=== PATIENT | male | born 1970 | race Caucasian/White ===

== ENCOUNTER 2019-03-05 21:05 | Inpatient (IN) | payer SELFPAY ==
[~2019-03-05] VITALS: Ht 180.3 cm; Wt 104.3 kg
--- NOTE | ~2019-03-05 | CN ---
PATIENT NAME:ELVIRA GARVIN MEDICAL RECORD: [id number] : 74 LOCATION:[facility] D.2127 ADMIT DATE: 03/05/19 ACCOUNT: [id number] CONSULTING PHYSICIAN: ELIZABETH BOROKE MD REFERRING PHYSICIAN: JAJA AVILA MD DATE OF CONSULTATION: 03/06/2019 CARDIOLOGY CONSULTATION DIAGNOSES: 1. Elevated troponin. 2. Cellulitis. HISTORY OF PRESENT ILLNESS: Mr. Garvin presents with left lower extremity cellulitis. He is being treated with IV antibiotics for this. He was noted have an elevated troponin. He has had no chest pain, no chest discomfort, no cardiac symptoms. His EKG shows sinus tachycardia, but no ST-T abnormalities. He is quite tachycardic over 100. His systolic blood pressure was in the 160-180 range. He has no cardiac history. PHYSICAL EXAMINATION: GENERAL APPEARANCE: Well-nourished, well-developed, appears stated age. Level of distress, comfortable. PSYCHIATRIC: Mental status, alert, normal affect. Orientation, oriented to time, place and person. EYES: Lids and conjunctiva, noninjected. No discharge, no pallor. ENT: Lips, teeth, gums, normal dentition. Oropharynx, no cyanosis, no pallor. NECK: Carotid arteries, bilateral normal upstroke, no bruits, no thrills. JUGULAR VEINS: No jugular venous pressure or distention. CERVICAL LYMPH NODES: Nontender, nonenlarged. THYROID: Not enlarged. Nontender. No nodules. LUNGS: Respiratory effort, unlabored. CHEST: Normal curvature. No thoracic deformity. No chest wall tenderness. Percussion, resonant. Auscultation, clear. No wheezes, no rales, no rhonchi. CARDIOVASCULAR: Precordial exam, nondisplaced. No heaves or pericardial thrills. Rate and rhythm, regular. Heart sounds, normal S1, normal S2. No S3, no gallop, no rub. Systolic murmur, not heard. Diastolic murmur, not heard. EXTREMITIES: No cyanosis, no edema. Peripheral pulses, full and equal in all extremities, except as noted. No bruits appreciated. ABDOMEN: Soft, nondistended. Normal aorta. No bruit. Nontender. No masses. Liver, nontender, no hepatomegaly. Spleen, nontender, no splenomegaly. MUSCULOSKELETAL: No joint tenderness. No joint swelling. No erythema. NEUROLOGICAL: Normal gait, normal strength, normal tone. SKIN: Warm and dry. OVERALL IMPRESSION: Increased troponin, most likely demand ischemia from the tachycardia from the cellulitis. We will get an echocardiogram, start him on Lopressor 50 mg b.i.d. TRANSINT:[id number] Voice Confirmation ID: [id number] DOCUMENT ID: [id number] CONSULT REPORT [id number] ELVIRA GARVIN JEFFREY MD CC: [id number] DICTATION DATE: 03/06/19 1152 ELECTRONICS RESEARCH ENGINEER: 03/06/19 1512 ADM IN [facility] [address] [id number]
--- NOTE | ~2019-03-05 | EC ---
PATIENT:ELVIRA STAPLETON DATE OF SERVICE: 03/05/19 SEX: M MEDICAL RECORD: [id number] DATE OF : 74 LOCATION:D.M2 D.212 AGE OF PATIENT: 48 ADMISSION DATE: 03/05/19 REFERRING PHYSICIAN: INTERPRETING PHYSICIAN: ELIZABETH DELGADO MD ECHOCARDIOGRAM REPORT ECHO CHARGES 4 ECHO COMPLETE Date: 03/06/19 CLINICAL DIAGNOSIS: ELEVATED TROPONIN ECHOCARDIOGRAPHIC MEASUREMENTS (adult normal given) AC root (d.<3.7cm) 3.3 cm LV Septum d (<1.2 cm> 1.4 cm Valve Excursion 2.2 cm LV Septum (systole) 1.7 cm Left Atria (s.<4.0cm> 4.0 cm LVPW d(<1.2cm) 1.4 cm RV (d.<2.3cm) 2.7 cm LVPW (sytole) 1.9 cm LV diastole(<5.6CM) 4.3 cm MV E-F(>70mm/sec) cm LV systole 2.6 cm LVOT Diameter 2.3 cm MV exc.(>10mm) cm Est.ejection fraction (50-75%) % DOPPLER: LVIT cm/sec A 58.0 cm/sec E 60.0 cm/sec LA cm/sec RVSP mmHg LVOT 90.0 cm/sec AOP1/2T m/s Asc. Ao 137 cm/sec RVOT 59.0 cm/sec RA cm/sec PA 97.0 cm/sec AV Gradient Peak 7.5 mmHg AV Mean 3.9 mmHg AV Area 2.3 cm MV Gradient Peak 2.9 mmHg MV Mean 1.3 mmHg MV Area cm COMMENTS: Car Construction Superintendent: Johnny FRENCHOE Primer Assembler: 1 Dr. Delgado TAPE# PACS Pericardial Effusion N DATE OF SERVICE: 03/06/2019 FINDINGS: 1. Left ventricular chamber size is within normal limits. Left ventricular systolic function is normal. Overall ejection fraction estimated at 55%. 2. Left atrium, right atrium, and right ventricular chamber sizes are within normal limit. 3. Valvular structures have normal structure and motion. 4. Doppler interrogation reveals no significant valvular insufficiency or stenosis. ECHOCARDIOGRAM REPORT [id number] ELVIRA STAPLETON 5. No evidence of pericardial effusion or left ventricular thrombus. TRANSINT:[id number] Voice Confirmation ID: [id number] DOCUMENT ID: [id number] ELIZABETH DELGADO MD CC: [id number] DICTATION DATE: 03/06/191729 SHAKE SAWYER: 03/06/192225 ADM IN [place] [id number] [place] [id number]
[2019-03-05 22:43] LABS: BASOPHILS 0.2 % (0-2); EOSINOPHILS 0.1 % (0-7); HEMATOCRIT 51.8 % (42.0-54.0); HEMOGLOBIN 18.4 g/dL (13.5-17.5); IMMATURE GRANULOCYTES 0.5 % (0-5); LYMPHOCYTES 13.9 % (15-50); MCH 32.1 pg (26.0-34.0); MCHC 35.5 g/dL (31.0-37.0); MCV 90.2 fL (80.0-100.0); MEAN PLATELET VOLUME 10.8 fL (7.4-10.4); MONOCYTES 7.5 % (2-11); NEUTROPHILS 77.8 % (40-80); PLATELET COUNT 221 10x3/uL (130-400); RBC 5.74 10x6/uL (4.20-6.10); RDW 12.8 % (11.5-14.5); WBC 17.8 10x3/uL (4.8-10.8)
[2019-03-05 22:52] LABS: APPEARANCE CLEAR (CLEAR); BILIRUBIN NEGATIVE (NEGATIVE); COLOR YELLOW (YELLOW); GLUCOSE NEGATIVE (NEGATIVE); KETONE NEGATIVE (NEGATIVE); NITRITE NEGATIVE (NEGATIVE); PROTEIN NEGATIVE (NEGATIVE); UROBILINOGEN NORMAL (NORMAL)
[2019-03-05 22:54] LABS: ALBUMIN 3.6 g/dL (3.4-5.0); ALKALINE PHOSPHATASE 105 U/L (46-116); ALT (SGPT) 74 U/L (10-68); AMYLASE - SERUM 62 U/L (25-115); BILIRUBIN - TOTAL 0.93 mg/dL (0.2-1.3); CALC OSMOLALITY 271 mosm/kg (275-300); CALCIUM 9.1 mg/dL (8.5-10.1); CARBON DIOXIDE 30.1 mmol/L (21.0-32.0); CHLORIDE - SERUM 95 mmol/L (98-107); CKMB 1.1 U/L (0.0-3.6); CREATINE KINASE 92 UL (21-232); CREATININE - SERUM 1.3 mg/dL (0.6-1.3); GLUCOSE 136 mg/dL (74-106); LIPASE 257 U/L (73-393); POTASSIUM - SERUM 3.9 mmol/L (3.5-5.1); PROTEIN - SERUM 8.6 g/dL (6.4-8.2); SODIUM 135 mmol/L (136-145); UREA NITROGEN 12 mg/dL (7-18); eGFR NON AFRICAN AMERICAN 63 mL/min (90-120)
[2019-03-05 22:59] LABS: TROPONIN-I 0.141 ng/mL (0.000-0.060)
[2019-03-05 23:06] LABS: INR 1.39 (0.85-1.17); PROTIME 16.5 SECONDS (11.6-15.0)
[2019-03-05 23:07] LABS: APTT 50.7 SECONDS (22.8-39.4)
[2019-03-06 00:11] VITALS: BP 125/83; BMI 32.1
[2019-03-06 04:30] VITALS: BP 186/84
[2019-03-06 04:57] LABS: BASOPHILS 0.2 % (0-2); EOSINOPHILS 0.1 % (0-7); HEMATOCRIT 47.4 % (42.0-54.0); HEMOGLOBIN 16.3 g/dL (13.5-17.5); IMMATURE GRANULOCYTES 0.3 % (0-5); MCH 31.2 pg (26.0-34.0); MCHC 34.4 g/dL (31.0-37.0); MCV 90.8 fL (80.0-100.0); MEAN PLATELET VOLUME 10.6 fL (7.4-10.4); MONOCYTES 11.3 % (2-11); NEUTROPHILS 67.1 % (40-80); PLATELET COUNT 189 10x3/uL (130-400); RBC 5.22 10x6/uL (4.20-6.10); RDW 12.7 % (11.5-14.5); WBC 18.7 10x3/uL (4.8-10.8)
[2019-03-06 05:26] LABS: ALKALINE PHOSPHATASE 91 U/L (46-116); ALT (SGPT) 70 U/L (10-68); BILIRUBIN - TOTAL 0.83 mg/dL (0.2-1.3); CALC OSMOLALITY 281 mosm/kg (275-300); CALCIUM 8.7 mg/dL (8.5-10.1); CARBON DIOXIDE 32.5 mmol/L (21.0-32.0); CHLORIDE - SERUM 103 mmol/L (98-107); CKMB 1.4 U/L (0.0-3.6); CREATINE KINASE 81 UL (21-232); CREATININE - SERUM 1.3 mg/dL (0.6-1.3); GLUCOSE 110 mg/dL (74-106); POTASSIUM - SERUM 4.1 mmol/L (3.5-5.1); PROTEIN - SERUM 7.2 g/dL (6.4-8.2); SODIUM 141 mmol/L (136-145); UREA NITROGEN 13 mg/dL (7-18); eGFR NON AFRICAN AMERICAN 63 mL/min (90-120)
[2019-03-06 05:27] LABS: TROPONIN-I 0.153 ng/mL (0.000-0.060)
--- NOTE | 2019-03-06 07:34 | NUR ---
REPORT RECEIVED. WILL CONTINUE WITH POC. PT CURRENTLY LYING SUPINE. CALL LIGHT W/I REACH. PT IS RESTING AT THE MOMENT. RR EVEN AND UNLABORED RA. LR INFUSING @125ML/HR VIA R.AC. NO S/S OF DISTRESS NOTED. PT IS NPO AT THE MOMENT. PT DENIES ANY NEEDS AT THIS TIME. WILL CTM.
[2019-03-06 08:40] VITALS: BP 181/97
[2019-03-06 10:20] LABS: CKMB 1.3 U/L (0.0-3.6); CREATINE KINASE 86 UL (21-232)
[2019-03-06 10:21] LABS: TROPONIN-I 0.156 ng/mL (0.000-0.060)
--- NOTE | 2019-03-06 10:26 | NUR ---
ABX CURRENTLY INFUSING. PT CURRENTLY SLEEPING. WILL CTM.
--- NOTE | 2019-03-06 11:53 | NUR ---
PT IS NO LONGER NPO. PT IS NOT GOING TO GUN STRIPER. WILL CTM. PT CURRENTLY EATING LUNCH.
[2019-03-06 12:30] VITALS: BP 155/60
--- NOTE | 2019-03-06 13:25 | MORECARE ---
CASE MANAGEMENT DISCHARGE SUMMARY PATIENT: ELVIRA STAPLETON UNIT: [id number] ADM DATE: 03/05/19 AGE: 48 : 74 SEX: M ROOM/BED: D.2127 AUTHOR: TAHIR ACOSTA PHYSICIAN: REFERRING PHYSICIAN: JAJA AVILA MD DATE OF SERVICE: 03/06/19 Discharge Plan Patient Name: ELVIRA STAPLETON [facility] [facility] 1970 Planned Disposition: Home Anticipated Discharge Date: Discharge Date: Expected LOS: Initial Reviewer: [email or web address] Initial Review Date: 03/06/2019 Generated: 03/06/19 2:25 pm Patient Name: ELVIRA STAPLETON Page [id number] at 1325 All edits/amendments must be made on the electronic document DICTATION DATE: 03/06/19 1325 RETICLE PRINTER: RADHA 03/06/19 1325 RPT#: [id number] DC DATE: STATUS: ADM IN [facility] [address] [place] [address] END OF REPORT
--- NOTE | 2019-03-06 13:33 | MORECARE ---
CASE MANAGEMENT DISCHARGE SUMMARY PATIENT: ELVIRA STAPLETON UNIT: [id number] ADM DATE: 03/05/19 AGE: 48 : 74 SEX: M ROOM/BED: D.0984 AUTHOR: DAVE,DOC PHYSICIAN: REFERRING PHYSICIAN: JAJA AVILA MD DATE OF SERVICE: 03/06/19 Discharge Plan Patient Name: ELVIRA STAPLETON Facility: [facility]:[place] : 1970 Planned Disposition: Home Anticipated Discharge Date: Discharge Date: Expected LOS: Initial Reviewer: [email or web address] Initial Review Date: 03/06/2019 Generated: 03/06/19 2:33 pm Comments DCP- Discharge Planning Updated by [email or web address]: Driss Finnegan on 03/06/19 12:[address] Patient Name: ELVIRA STAPLETON Admission Status: ER Accout number: [id number] Admission Date: 03-05-2019 : 1970 Admission Diagnosis: Attending: JAJA AVILA Current LOS: 1 Anticipated DC Date: Planned Disposition: Home Primary Insurance: UNINSURED DISCOUNT PLAN Discharge Planning Comments: CM MET WITH PT IN ROOM TO DISCUSS DISCHARGE PLANNING AND NEEDS. PT REPORTS LIVING AT HOME INDEPENDENTLY WITH HIS GIRLFRIEND. PT HAS NO MEDICAL EQUIPMENT AND NO OUTSIDE SERVICES ASSISTING IN THE HOME. CM DISCUSSED AVAILABILITY OF HOME HEALTH, REHAB SERVICES AND MEDICAL EQUIPMENT. PT DENIES DISCHARGE NEEDS, REPORTS HIS GIRLFRIEND WILL PICK HIM UP FOR DISCHARGE HOME. PT PLANS TO DISCHARGE HOME WITH GIRLFRIEND, NO ANTICIPATED DISCHARGE NEEDS AT THIS TIME. GIRLFRIEND TO TRANSPORT HOME AT DISCHARGE. CM TO FOLLOW AND ASSIST IF NEEDED. Manager Database: Driss Finnegan DCPIA - Discharge Planning Initial Assessment Updated by [email or web address]: Driss Finnegan on 03/06/19 1:28 pm * Is the patient Alert and Oriented? Yes * How many steps to enter\exit or inside your home? * PCP DR. LUCAS * Pharmacy [facility] [address] * Preadmission Environment Home with Family * ADLs Independent * Equipment None * Other Equipment NO MEDICAL EQUIPMENT PROVIDER PREFERENCE * List name and contact numbers for known caregivers / representatives who currently or will assist patient after discharge: RADHA STAPLETON, MOTHER, * Verbal permission to speak to the caregivers and representatives has been obtained from the patient. N/A * Community resources currently utilized None * Please name any agencies selected above. NONE * Additional services required to return to the preadmission environment? No * Can the patient safely return to the preadmission environment? Yes * Has this patient been hospitalized within the prior 30 days at any hospital? No Last DP export: 03/06/19 12:25 pm Patient Name: ELVIRA STAPLTEON Page [phone] at 1333 All edits/amendments must be made on the electronic document DICTATION DATE: 03/06/19 1333 SOFTWARE CONFIGURATION ANALYST: RADHA 03/06/19 1333 RPT#: [id number] DC DATE: STATUS: ADM IN [facility] [address] [place] [address] END OF REPORT
[2019-03-06 14:15] VITALS: Ht 180.3 cm; Wt 104.3 kg
[2019-03-06 16:36] VITALS: BP 163/97
[2019-03-06 16:37] LABS: CKMB 1.3 U/L (0.0-3.6); CREATINE KINASE 76 UL (21-232)
[2019-03-06 16:38] LABS: TROPONIN-I 0.153 ng/mL (0.000-0.060)
[2019-03-06 17:25] LABS: UDS - AMPHET NEGATIVE QUAL (NEGATIVE); UDS - BARB NEGATIVE QUAL (NEGATIVE); UDS - BENZO NEGATIVE QUAL (NEGATIVE); UDS - COCAINE NEGATIVE QUAL (NEGATIVE); UDS - OPIATE NEGATIVE QUAL (NEGATIVE); UDS - PCP NEGATIVE QUAL (NEGATIVE); UDS - THC NEGATIVE QUAL (NEGATIVE)
--- NOTE | 2019-03-06 19:20 | NUR ---
PT ASLEEP. RESP EVEN AND UNLABORED. PT AROUSES TO VERBAL STIMULI. PT WILL CALL FOR ASSIST. NAME AND DATE PLACED ON BOARD. WILL CPOC
[2019-03-06 20:00] VITALS: BP 137/82
--- NOTE | 2019-03-06 21:36 | NUR ---
NIGHT MEDICATIONS GIVEN. RIGTH AC 20G PATENT HAS LR INFUSING ORDERED. PT FALLING ASLEEP WHILE NURSE IN ROOM. SNORING WITH EVEN AND UNLABORED BREATHS. PT HAS CALL LIGHT IN REACH. WILL CPOC
[2019-03-07 00:30] VITALS: BP 139/87
[2019-03-07 04:20] VITALS: BP 137/80
--- NOTE | 2019-03-07 04:56 | NUR ---
MORNING MEDICATION GIVEN. PT DENIES ANY NEEDS. PT HAS NO S/S OF DISTRESS. BEDLOW AND CALL LIGHT IN REACH. PT WILL CALL FOR ASSIST WHEN NEEDED. WILL CPOC
[2019-03-07 05:48] LABS: BASOPHILS 0.2 % (0-2); EOSINOPHILS 3.7 % (0-7); HEMATOCRIT 46.3 % (42.0-54.0); HEMOGLOBIN 15.9 g/dL (13.5-17.5); IMMATURE GRANULOCYTES 0.2 % (0-5); LYMPHOCYTES 25.8 % (15-50); MCH 31.5 pg (26.0-34.0); MCHC 34.3 g/dL (31.0-37.0); MCV 91.7 fL (80.0-100.0); MEAN PLATELET VOLUME 10.9 fL (7.4-10.4); MONOCYTES 10.8 % (2-11); NEUTROPHILS 59.3 % (40-80); PLATELET COUNT 185 10x3/uL (130-400); RBC 5.05 10x6/uL (4.20-6.10); RDW 13.1 % (11.5-14.5)
[2019-03-07 05:56] LABS: WBC 12.3 10x3/uL (4.8-10.8)
[2019-03-07 05:58] LABS: ANION GAP 10.2 mmol/L (8-16); CALCIUM 8.5 mg/dL (8.5-10.1); CARBON DIOXIDE 30.9 mmol/L (21.0-32.0); CREATININE - SERUM 1.3 mg/dL (0.6-1.3); POTASSIUM - SERUM 4.1 mmol/L (3.5-5.1)
--- NOTE | 2019-03-07 07:45 | NUR ---
ASSESSMENT DONE. NO DISTRESS NOTED. DENIES NEEDS AT THIS TIME. CALL LIGHT WITHIN REACH. BED AT LOWEST POSITION. WILL CONTINUE TO MONITOR.
[2019-03-07 08:23] VITALS: BP 163/89
[2019-03-07 11:29] VITALS: BP 131/85
[2019-03-07 15:58] VITALS: BP 125/76
--- NOTE | 2019-03-07 19:10 | NUR ---
RESTING WITH EYES CLOSED BED IS LOW AND LOCKED
[2019-03-07 20:00] VITALS: BP 129/69
[2019-03-08] VITALS (7 sets, daily range): BP systolic 120–146; BP diastolic 72–97
--- NOTE | 2019-03-08 04:11 | NUR ---
I have reviewed this patient and I concur with the Shift Assessment completed by the Licensed Practical Nurse today this shift.
[2019-03-08 06:46] LABS: ANION GAP 11.6 mmol/L (8-16); CALCIUM 8.8 mg/dL (8.5-10.1); CARBON DIOXIDE 29.4 mmol/L (21.0-32.0); CREATININE - SERUM 1.2 mg/dL (0.6-1.3)
--- NOTE | 2019-03-08 07:47 | NUR ---
ASSESSMENT COMPLETED. ALERT AND ORIENTED. UP AB ESAU. RIGHT AC ANAIS TRAN AT KVO. DENIES ANY NEEDS. WILL MONITOR
[2019-03-08 07:54] LABS: BASOPHILS 0.5 % (0-2); EOSINOPHILS 3.5 % (0-7); HEMATOCRIT 46.6 % (42.0-54.0); IMMATURE GRANULOCYTES 0.5 % (0-5); LYMPHOCYTES 29.2 % (15-50); MCH 31.3 pg (26.0-34.0); MCHC 34.3 g/dL (31.0-37.0); MCV 91.2 fL (80.0-100.0); MEAN PLATELET VOLUME 11.2 fL (7.4-10.4); MONOCYTES 11.6 % (2-11); NEUTROPHILS 54.7 % (40-80); PLATELET COUNT 208 10x3/uL (130-400); RBC 5.11 10x6/uL (4.20-6.10); RDW 12.9 % (11.5-14.5); WBC 10.8 10x3/uL (4.8-10.8)
--- NOTE | 2019-03-08 12:11 | NUR ---
Nutrition follow-up: Diet: Low sodium PO intake 75-100% of most meals labs reviewed Wt: 230# No BM charted since admit RDN following.
--- NOTE | 2019-03-08 18:07 | NUR ---
LYING QUIETLY WITH EYES CLOSED. TELEMERTY SHOWS SR. NO DISTRESS NOTED
--- NOTE | 2019-03-08 19:10 | NUR ---
RESTING WITH EYES CLOSED WITH EVEN RESPIRATIONS SKIN WARM AND DRY BED IS LOW AND LOCKED WITH CALL LIGHT IN REACH
--- NOTE | 2019-03-09 03:04 | NUR ---
I have reviewed this patient and I concur with the Shift Assessment completed by the Licensed Practical Nurse today this shift.
[2019-03-09 04:00] VITALS: BP 136/90
[2019-03-09 06:03] LABS: BASOPHILS 0.6 % (0-2); EOSINOPHILS 3.4 % (0-7); HEMATOCRIT 47.6 % (42.0-54.0); HEMOGLOBIN 16.3 g/dL (13.5-17.5); IMMATURE GRANULOCYTES 0.8 % (0-5); LYMPHOCYTES 35.4 % (15-50); MCH 31.2 pg (26.0-34.0); MCHC 34.2 g/dL (31.0-37.0); MCV 91.2 fL (80.0-100.0); MEAN PLATELET VOLUME 10.7 fL (7.4-10.4); MONOCYTES 10.1 % (2-11); NEUTROPHILS 49.7 % (40-80); PLATELET COUNT 228 10x3/uL (130-400); RBC 5.22 10x6/uL (4.20-6.10); RDW 12.9 % (11.5-14.5)
[2019-03-09 06:27] LABS: ANION GAP 10.4 mmol/L (8-16); CALCIUM 8.8 mg/dL (8.5-10.1); CREATININE - SERUM 1.4 mg/dL (0.6-1.3); POTASSIUM - SERUM 4.4 mmol/L (3.5-5.1)
[2019-03-09 08:42] VITALS: BP 145/90
--- NOTE | 2019-03-09 10:51 | NUR ---
PATIENT IS SITTING UP IN BED. HE JUST GOT UP TO THE CHAIR. IV IS INTACT AND HE DENIES ANY NEEDS AT THIS TIME. HE REPORTS THAT HE SLEPT WELL LAST NIGHT. HE WOULD LIKE TO BE DISCAHRGED SOON AND REPORTS FEELING BETTER.
[2019-03-09 11:40] VITALS: BP 146/78
--- NOTE | 2019-03-09 15:49 | NUR ---
PATIENT IS UP AND ALERT. HE IS UP OUT OF BED, HOWEVER HE HAS BEEN RESTING WITH EYES CLOSED ALL DAY. AT THIS TIME HIS B/P IS 156/106. THE IV IN HIS RIGHT AC IS DISLODGED. I WILL HAVE TO REMOVE THE IV AND AM GOING TO START A NEW IV NOW.
--- NOTE | 2019-03-09 16:00 | NUR ---
TOOK B/P MANUALLY AND PATIENT B/P IS 159/98 NOW. HE DID TAKE HIS B/P MEDICATION THIS MORNING. HE IS NOT SYMPTOMATIC.
[2019-03-09 16:10] VITALS: BP 156/106
--- NOTE | 2019-03-09 17:59 | NUR ---
IV IN RIGHT AC REMOVED BECAUSE IT WAS INFILTRATED. CATHETER INTACT PATIENT TOLERATED. TRIED TO START A NEW IV, WAS UNSUCCESSFUL. ZACK ANOTHER NURSE ATTEMPTED 2 TIMES AND COULD NOT GET IV. PATIENT REQUESTED A SHOWER. AFTER THE SHOWER HE GOT DRESSED, AND LEFT WITHOUT US NOTICING. HE HAS NOT YET RETURNED. ALL HIS BELONGINGS HAVE LEFT WITH HIM. ASKED SECURITY TO LOOK FOR HIM AND THEY HAVE NOT FOUND HIM. IT APPEARS THAT HE HAS LEFT AMA. WILL WAIT A BIT LONGER, AND SEE IF HE COMES BACK.
--- NOTE | 2019-03-09 18:41 | NUR ---
I CALLED DR AVILA AND NOTIFIED HIM OF PATIENT LEAVING.
--- NOTE | 2019-03-09 19:42 | NUR ---
PATIENT ELOPED. HE LEFT HIS TELEMETRY AND DID NOT HAVE AN IV AT THE TIME HE LEFT ON FOOT WITHOUT BEING SEEN. SECURITY WAS NOTIFIED AND PATIENT WAS NOT FOUND ON THE PREMISIS.
--- NOTE | 2019-03-10 19:18 | MORECARE ---
CASE MANAGEMENT DISCHARGE SUMMARY PATIENT: ELVIRA STAPLETON UNIT: [id number] ADM DATE: 03/05/19 AGE: 48 : 74 SEX: M ROOM/BED: D.1580 AUTHOR: DAVE,DOC PHYSICIAN: REFERRING PHYSICIAN: JAJA AVILA MD DATE OF SERVICE: 03/10/19 Discharge Plan Patient Name: ELVIRA STAPLETON Facility: [facility]:[place] : 1970 Planned Disposition: Home Anticipated Discharge Date: Discharge Date: 03/09/2019 Expected LOS: Initial Reviewer: [email or web address] Initial Review Date: 03/06/2019 Generated: 03/10/19 8:18 pm DCP- Discharge Planning Updated by [email or web address]: Driss Finnegan on 03/06/19 12:[address] Patient Name: ELVIRA STAPLETON Admission Status: ER Accout number: [id number] Admission Date: 03-05-2019 : 1970 Admission Diagnosis: Attending: JAJA AVILA Current LOS: 1 Anticipated DC Date: Planned Disposition: Home Primary Insurance: UNINSURED DISCOUNT PLAN Discharge Planning Comments: CM MET WITH PT IN ROOM TO DISCUSS DISCHARGE PLANNING AND NEEDS. PT REPORTS LIVING AT HOME INDEPENDENTLY WITH HIS GIRLFRIEND. PT HAS NO MEDICAL EQUIPMENT AND NO OUTSIDE SERVICES ASSISTING IN THE HOME. CM DISCUSSED AVAILABILITY OF HOME HEALTH, REHAB SERVICES AND MEDICAL EQUIPMENT. PT DENIES DISCHARGE NEEDS, REPORTS HIS GIRLFRIEND WILL PICK HIM UP FOR DISCHARGE HOME. PT PLANS TO DISCHARGE HOME WITH GIRLFRIEND, NO ANTICIPATED DISCHARGE NEEDS AT THIS TIME. GIRLFRIEND TO TRANSPORT HOME AT DISCHARGE. CM TO FOLLOW AND ASSIST IF NEEDED. Gauge And Weigh Machine Adjuster: Driss Finnegan DCPIA - Discharge Planning Initial Assessment Updated by [id number]: Driss Finnegan on 03/06/19 1:28 pm * Is the patient Alert and Oriented? Yes * How many steps to enter\exit or inside your home? * PCP DR. LUCAS * Pharmacy [facility] [address] * Preadmission Environment Home with Family * ADLs Independent * Equipment None * Other Equipment NO MEDICAL EQUIPMENT PROVIDER PREFERENCE * List name and contact numbers for known caregivers / representatives who currently or will assist patient after discharge: RADHA STAPLETON, MOTHER, * Verbal permission to speak to the caregivers and representatives has been obtained from the patient. N/A * Community resources currently utilized None * Please name any agencies selected above. NONE * Additional services required to return to the preadmission environment? No * Can the patient safely return to the preadmission environment? Yes * Has this patient been hospitalized within the prior 30 days at any hospital? No Last DP export: 03/06/19 12:33 pm Patient Name: ELVIRA STAPLETON Page [phone] at 1918 All edits/amendments must be made on the electronic document DICTATION DATE: 03/10/191916 STAFFING ADMINISTRATOR: RADHA 03/10/191916 RPT#: [id number] DC DATE:03/09/19 STATUS: DIS IN [facility] [address] [place] [address] END OF REPORT
== END 2019-03-09 19:44 | disposition left against medical advice (07) | DRG 871 ==
LOC: D.ER 21:05 → D.M2 23:10
PROVIDERS: Family Medicine; ADMIT Internal Medicine Nephrology; ATTEND Internal Medicine Nephrology
DX: A41.9 Sepsis, unspecified organism (principal); J18.9 Pneumonia, unspecified organism; L03.116 Cellulitis of left lower limb; I24.8 Other forms of acute ischemic heart disease; I10 Essential (primary) hypertension; E66.9 Obesity, unspecified; Z68.32 Body mass index [BMI] 32.0-32.9, adult; R79.89 Other specified abnormal findings of blood chemistry; R00.0 Tachycardia, unspecified

== ENCOUNTER 2021-03-24 18:58 | Emergency (ER) | payer SELFPAY ==
[~2021-03-24] VITALS: Ht 180.3 cm; Wt 104.5 kg
[2021-03-24 20:06] VITALS: BP 165/97; Ht 180.3 cm; Wt 104.5 kg
== END 2021-03-24 23:19 | disposition home or self-care (01) ==
LOC: D.ER 18:58
DX: S90.31XA Contusion of right foot, initial encounter (principal); W11.XXXA Fall on and from ladder, initial encounter; S93.401A Sprain of unspecified ligament of right ankle, initial encounter